=== PATIENT | female | born 1985 | race Caucasian/White ===

== ENCOUNTER → 2016-12-23 | Outpatient (CLI) | payer BC | LOC: LAB 18:29 | PROVIDERS: ATTEND Nurse Practitioner Family | DX: R51 Headache (principal) | CPT/HCPCS: 36415; 85652; 86141 ==

== ENCOUNTER → 2018-04-04 | Outpatient (CLI) | payer BC ==
--- NOTE | 2018-04-04 17:45 | Diagnostic Imaging Report ---
INDICATION: Left wrist pain. AP, oblique, and lateral views of the left wrist are obtained. FINDINGS: No fracture or acute bony abnormality is seen. Joint spaces are unremarkable. IMPRESSION: Negative left wrist. Dictated by: Dictated on workstation # [id number]
== END ==
LOC: RAD 14:16
PROVIDERS: ATTEND Family Medicine
DX: S69.92XA Unspecified injury of left wrist, hand and finger(s), initial encounter (principal); Y93.75 Activity, martial arts
CPT/HCPCS: 73110

== ENCOUNTER 2020-11-03 05:30 | Outpatient (RCR) | payer BC ==
[~2020-11-03] VITALS: Ht 157.5 cm; Wt 90.8 kg
[~2020-11-03 05:30] MED LIST changes: -PANT40TA2 PO
== END 2020-11-03 10:16 | disposition home or self-care (01) ==
LOC: PREOP 05:30
PROVIDERS: ATTEND Surgery
DX: Z01.812 Encounter for preprocedural laboratory examination (principal); Z20.822 Contact with and (suspected) exposure to COVID-19
CPT/HCPCS: 87635

== ENCOUNTER → 2020-11-03 | Outpatient (CLI) | payer BC ==
[~2020-11-03] MED LIST: CYAN250010 PO; DEXT350P5 PO; MULT-974 PO; PANT40TA2 PO
== END ==
LOC: LAB 07:02
PROVIDERS: ATTEND Surgery
DX: Z20.822 Contact with and (suspected) exposure to COVID-19 (principal)

== ENCOUNTER 2020-11-05 11:10 | Day surgery (SDC) | payer BC ==
--- NOTE | 2020-10-30 21:21 | HISTORY AND PHYSICAL ---
DATE OF SERVICE: DATE OF ADMISSION: 11/05/2020. ADMITTING PRIMARY CARE PHYSICIAN: Dr. Barbie Rucker. HISTORY: The patient is a 35-year-old female who has had dysphagia for the past 3 weeks. She also states that during these episodes she does get anxious and then also feels short of breath. She underwent a bimanual examination and there were no palpable masses in the neck. She also underwent an ultrasound, which showed upper limits of normal thyroid gland with no nodules. Upon further questioning, she does not report any classic symptoms of reflux nor any peptic ulcer disease. She does state crampy abdominal pain secondary to gas, which may indicate some level of irritable bowel syndrome. She states her bowel movements are normal. She reports that when she does eat foods, things that are dry in nature including breads and crackers do make her symptoms worse with epigastric pressure sensation, which would reduce on its own over time. PAST MEDICAL HISTORY: None. PAST SURGICAL HISTORY: Right elbow ulnar nerve transposition. ALLERGIES: No known drug allergies. MEDICATIONS: None. SOCIAL HISTORY: Negative smoke, negative alcohol. FAMILY HISTORY: Noncontributory. VITAL SIGNS: Blood pressure 148/90. Current weight 201.7 pounds at 5 feet 2 inches. REVIEW OF SYSTEMS: Well-nourished female in no acute distress. She is experiencing some mild shortness of breath; however, this is likely due to when she does have the episodes of dysphagia. No cough or sputum production as well as no hemoptysis. Intermittent episodes of epigastric and substernal pressure sensation as well as a globus sensation upon swallowing for the past four months on an intermittent basis. No nausea, vomiting. No hematemesis, no coffee ground emesis. No red blood per rectum, no dark tarry stools. No fever, chills, no recent inadvertent weight loss. All other review of systems negative. PHYSICAL EXAMINATION: CHEST: Clear. Good breath sounds bilaterally. HEART: Regular, no murmurs. EXTREMITIES: No lower extremity edema, negative Homans sign. HEENT: No scleral icterus. NECK: No cervical lymphadenopathy. ABDOMEN: Soft, nontender, nondistended. ASSESSMENT AND PLAN: A 35-year-old female with dysphagia. She does not have classic symptoms of gastroesophageal reflux disease; however, due to her symptoms, we will proceed with an EGD as well as biopsies as appropriate and if esophageal strictures identified, we will proceed with a balloon dilatation. Job ID: [id number] DocumentID: [id number] Dictated Date: 10/28/2020 16:46:47 Chief Construction Inspector Date: 10/28/2020 17:15:11 Dictated By: RASHID OLVERA MD
[2020-11-05] VITALS (11 sets, daily range): BP systolic 101–142; BP diastolic 56–101
[~2020-11-05] VITALS: Ht 157.5 cm; Wt 90.8 kg
[2020-11-05] MEDS ORDERED: NS IV 500 ML 500 ML ONE (11:14)
[2020-11-05] MEDS ORDERED: LIDOCAINE JELLY 2% 6 ML SYRINGE ONE (11:43)
[2020-11-05] MEDS ORDERED: MIDAZOLAM 5 MG/5 ML (VERSED) VIAL ONE ×2 (11:43→12:01)
[2020-11-05] MEDS ORDERED: fentaNYL INJ 100 MCG/2 ML AMP ONE (11:43)
--- NOTE | 2020-11-05 11:58 | Conscious Sedation/ASA ---
Conscious Sedation Pre-Proced Time 11:30 ASA Score 2 For ASA 3 and 4: Consider anesthesia and medical clearance. Also, for patients with a history of failed moderate sedation consider anesthesia. Airway Lungs Heart ASA score ASA 1: a normal healthy patient ASA 2: a patient with a mild systemic disease (mid diabetes, controlled hypertension, obesity ASA 3: a patient with a severe systemic disease that limits activity (angina, COPD, prior Myocardial infarction) ASA 4: a patient with an incapacitating disease that is a constant threat to life (CHF, renal failure) ASA 5: a moribund patient not expected to survive 24 hrs. (ruptured aneurysm) ASA 6: a declared brain- patient whose organs are being harvested. For emergent operations, add the letter E after the classification Mallampati Classification Grade 2 Sedation Plan Analgesia, Amnesia, Plan communicated to team members, Discussed options with patient/fam, Discussed risks with patient/fam The patient is an appropriate candidate to undergo the planned procedure, sedation, and anesthesia. The patient immediately re-assessed prior to indication. RASHID OLVERA MD Nov 05, 2020 11:58
--- NOTE | 2020-11-05 11:58 | Progress Note-Pre Operative ---
Pre-Operative Progress Note H&P Reviewed The H&P was reviewed, patient examined and no changes noted. Date Seen by Provider: Nov 05, 2020 Time Seen by Provider: 11: Date H&P Reviewed: Nov 05, 2020 Time H&P Reviewed: 11:30 Pre-Operative Diagnosis: GERD, dysphagia RASHID OLVERA MD Nov 05, 2020 11:58
[2020-11-05] MEDS ORDERED: PANT40TA2 PO (11:59)
[2020-11-05] MEDS ORDERED: morphine INJ 10 MG/ML 1ML (SYR OR VIAL) IVP PRN ×2 (12:00)
[2020-11-05] MEDS ORDERED: HYDROcodone/APAP 5 MG/325 MG (LORTAB) TAB PO PRN (12:00)
[2020-11-05] MEDS ORDERED: ONDANSETRON 4 MG/2 ML (SDV) Z0FRAN IVP PRN (12:00)
[2020-11-05] MEDS ORDERED: ACETAMINOPHEN 325 MG TABLET PO PRN (12:00)
--- NOTE | 2020-11-05 12:00 | Discharge Inst-Surgical ---
D/C Lap Instructions-KIDO New, Converted, or Re-Newed RX: RX on Chart Follow Up Activity as tolerated High Fiber Diet 25g or more per day Avoid Alcohol, Caffeine, Spicy [place] and Acid foods. Drink 64 fluid oz or more of fluids per day. Symptoms to Report: Fever over 101 degree F, Nausea/Vomiting If any problems/questions: Contact your physician or go to Emergency Room RASHID OLVERA MD Nov 05, 2020 12:00
[2020-11-05] MEDS ORDERED: NS IV 500 ML 500 ML IV PRN (12:45)
[2020-11-05] MEDS ORDERED: fentaNYL INJ 100 MCG/2 ML AMP IVP ONE (12:45)
[2020-11-05] MEDS ORDERED: MIDAZOLAM 5 MG/5 ML (VERSED) VIAL IV ONE (12:45)
[2020-11-05] MEDS ORDERED: LIDOCAINE JELLY 2% 6 ML SYRINGE MM PRN (12:45)
[2020-11-05] MEDS ORDERED: HURRICAINE EXT TUBE (BENZOCAINE) XX PRN (12:45)
--- NOTE | 2020-11-05 13:19 | Progress Note-Post Operative ---
Post-Operative Progess Note Surgeon (s)/Bench Assembler (s) Surgeon RASHID OLVERA MD Bench Assembler: none Pre-Operative Diagnosis GERD, dysphagia Post-Operative Diagnosis reflux esophagitis(stage 2), mild distal esoph stricture vs. achalasia, moderate gastritis. Procedure & Operative Findings Date of Procedure 11/05/20 Procedure Performed/Findings EGD with bx and balloon dilatation. Anesthesia Type cs Estimated Blood Loss Estimated blood loss (mL): minimal Specimens/Packing Specimens Removed ge jxn, antrum RASHID OLVERA MD Nov 05, 2020 13:19
--- NOTE | 2020-11-05 20:07 | OPERATIVE REPORT ---
DATE OF SERVICE: 11/05/2020 ATTENDING PRIMARY CARE PHYSICIAN: Barbie Rucker MD PREOPERATIVE DIAGNOSES: Gastroesophageal reflux disease and dysphagia. POSTOPERATIVE DIAGNOSES: Reflux esophagitis stage II, mild distal esophageal stricture, no significant hiatal hernia, moderate gastritis. No distal obstructions. PROCEDURE: EGD with biopsy and balloon dilatation. SURGEON: Rashid Olvera MD ANESTHESIA: Conscious sedation. ESTIMATED BLOOD LOSS: Minimal. FINDINGS: Same as postoperative diagnoses. DISPOSITION: The patient tolerated the procedure well. INDICATIONS: The patient is a 35-year-old female who has had issues with dysphagia for approximately one month. She reports that the symptoms tend to be worse when she does have anxiety and also does feel short of breath at times. She underwent a bimanual examination and there were no palpable masses in the neck. She also underwent an ultrasound of the neck, which did show the thyroid gland at the upper limits of normal; however, no nodules or any significant thyromegaly. Upon further questioning, she does not report any classic symptoms of reflux nor any peptic ulcer disease. She does state occasional crampy abdominal pain secondary to gas. This may indicate some level of irritable bowel syndrome. She does report her bowel movements have been normal. She does state dysphagia, especially foods are dry in nature including breads and crackers. She has epigastric pressure sensation, which reduces on its own over time. DESCRIPTION OF PROCEDURE: The patient was brought to the endoscopy suite, laid in the left lateral decubitus position. After adequate IV pain and sedative medications and conscious sedation anesthesia, the mouthpiece was applied. The endoscope was then placed in the mouth, visualizing the pharynx and hypopharyngeal region. Vocal cords, epiglottis and vallecula identified and appeared to be normal. The endoscope was then advanced to the first, second and third portions of esophagus at the level of the GE junction, reflux esophagitis stage II identified. There was a mild distal esophageal stricture versus hypertonic lower esophageal sphincter. A biopsy was taken of the GE junction with visualization of good hemostasis. The endoscope was then placed in the stomach and endoscope retroflexed visualizing no hiatal hernia. There was a moderate severity gastritis. No formal ulcerations, polyps, or any neoplasms identified. A biopsy was taken of the stomach antrum to rule out H. pylori with visualization of good hemostasis. Endoscope was then advanced to the pylorus and the first and second portion of the duodenum, which appeared normal with no distal obstructions. The endoscope was then slowly withdrawn while taking a second look and suctioning of residual air with no additional findings. The patient tolerated the procedure well. We will start her on Protonix 40 mg daily as well as the necessary lifestyle and diet accommodation including small and more frequent meals, avoidance of eating at night as well as head elevation while lying supine. We will also recommend avoidance of caffeinated beverages, spicy, greasy and acidic foods. If she has recurrent dysphagia, she may have achalasia and we would schedule her for an esophageal manometry study and if confirmed, then proceed with dilatation with a larger achalasia balloon up to 3.5 cm in diameter. Job ID: [id number] DocumentID: [id number] Dictated Date: 11/05/2020 12:29:44 Garment Folder Date: 11/05/2020 20:06:22 Dictated By: RASHID OLVERA MD
== END 2020-11-05 13:30 | disposition home or self-care (01) ==
LOC: ENDO 11:10
PROVIDERS: ATTEND Surgery
DX: K21.00 Gastro-esophageal reflux disease with esophagitis, without bleeding (principal); K22.2 Esophageal obstruction; K29.70 Gastritis, unspecified, without bleeding; Z20.822 Contact with and (suspected) exposure to COVID-19
CPT/HCPCS: 84703; 88305

== ENCOUNTER 2021-02-11 03:20 | Emergency (ER) | payer BC ==
[~2021-02-11] VITALS: Ht 157 cm; Wt 90.7 kg
[~2021-02-11 03:20] MED LIST changes: +PANT40TA2 PO
--- NOTE | 2021-02-11 03:39 | ED Lower Extremity ---
General Stated Complaint: PUNCTURE WOUND, RT FOOT Source: patient History of Present Illness Date Seen by Provider: Feb 11, 2021 Time Seen by Provider: 03:30 Initial Comments PT ARRIVES VIA POV FROM HOME STATES ON FEBRUARY 01, SHE STEPPED ON A PIECE OF GLASS, WITH RIGHT HEEL STATES SHE WAS WEARING "FLIP FLOPS" AND GLASS DID NOT PUNCTURE THE [id number] WAS BETWEEN HER SKIN AND THE FLIP FLOP STATES THEY HAVE BEEN ON VACATION IN [place] SINCE 02/01/21--"WE LEFT RIGHT AFTER [place] MULTIPLE TIMES OVER THE LAST 10 DAYS STATES THEY DROVE HOME 20 HOURS-STARTED 02/10/21 AND JUST GOT HOME AT 0230 AND CAME STRAIGHT HERE C/O PAIN, REDNESS AND SWELLING TO HER HEEL AT THE AREA OF PUNCTURE NO DRAINAGE. NO STREAKS HAS NOT SOUGHT CARE AT ANY TIME UNTIL NOW. SYMPTOMS NO DIFFERENT TONIGHT HAS NOT TAKEN ANYTHING FOR PAIN LAST TETANUS VACCINE IS UNKNOWN PCP: DR. SUDHA TANNER Allergies and Home Medications Allergies Coded Allergies: cat dander (Unverified Allergy, Severe, Anaphylaxis, 11/05/20) Home Medications Cyanocobalamin (Vitamin B-12) 2,500 Mcg Tablet, 2,500 MCG PO DAILY, (Reported) Dextrin 350 Gm Powder, 350 GM PO DAILY, (Reported) Multivitamin 1 Each Tablet, 1 EACH PO DAILY, (Reported) Pantoprazole Sodium 40 Mg Tablet.dr, 40 MG PO DAILY Prescribed by: RASHID OLVERA on 11/05/20 1159 Sulfamethoxazole/Trimethoprim 1 Each Tablet, 1 EACH PO BID Prescribed by: HO SANCHES on 02/11/21 0401 Patient Home Medication List Home Medication List Reviewed: Yes Review of Systems Constitutional: no symptoms reported Musculoskeletal: see HPI Skin: see HPI Psychiatric/Neurological: No Symptoms Reported Past Zaftljv-Vybshs-Ckohpv Hx Immunizations Up To Date Tetanus Booster (TDap): Unknown Seasonal Allergies Seasonal Allergies: No Past Medical History Surgeries: Yes (ELBOW) Orthopedic Respiratory: No Cardiac: No Neurological: No Genitourinary: No Gastrointestinal: No Musculoskeletal: No Endocrine: No HEENT: Yes (CONTACTS) Cancer: No Psychosocial: No Integumentary: No Blood Disorders: No Physical Exam Vital Signs Capillary Refill : Height, Weight, BMI Height: '" Weight: lbs. oz. kg; 36.60 BMI Method: General Appearance: WD/WN, no apparent distress, other (SMILING, TALKS RAPIDLY, NON-STOP) Feet: right foot other (PLANTAR ASPECT OF RIGHT HEEL WITH CENTRAL AREA OF SUB-Q PURULENCE OR BLISTER-LIKE FORMATION, AND MILD SURROUNDING ERYTHEMA, EDEMA AND TENDERNESS. NO FLUCTUANCE, NO DRAINAGE. NO STREAKS. PT AMBULATES IN WITHOUT DIFFICULTY. MOTOR/SENSORY/VASCULAR INTACT) Neurologic/Tendon: normal sensation, normal motor functions, normal tendon functions Neurologic/Psychiatric: no motor/sensory deficits, alert, normal mood/affect Progress/Results/Core Measures Results/Orders My Orders Orders - HO SANCHES DO Foot, Right, 3 View (02/11/21 03:33) Dipht,Pertuss(Acell),Tet Adult (Boostrix (02/11/21 03:45) Sulfamethoxazole/Trimet Ds Tab (Bactrim (02/11/21 04:00) Progress Progress Note : Progress Note AREA OF SUB Q PURULENCE/BLISTER-LIKE FORMATION CLEANSED WITH ALCOHOL, AND PUNCTURED / INCISED WITH #20 G NEEDLE--NO DRAINAGE OR BLEEDING FROM AREA AND NO FOREIGN BODY NOTED--UNABLE TO OBTAIN CULTURES FROM THE AREA Diagnostic Imaging Comments XRAYS RIGHT FOOT--NO ACUTE PROCESS, PENDING RADIOLOGIST REVIEW Reviewed: Reviewed by Me Departure Impression Primary Impression: Infected puncture wound of plantar aspect of foot Additional Impression: Tvhrxewqgd-wuzefwzrl-jucsbbp (DPT) vaccination administered at current visit Disposition: 01 HOME, SELF-CARE Condition: Stable Departure-Patient Inst. Decision time for Depature: 03:54 Referrals: SUDHA TANNER MD (PCP/Family) Primary Care Physician Patient Instructions: Cellulitis (Skin Infection), Adult (DC), Diphtheria and Tetanus Toxoids, and Acellular Pertussis Vaccine, Wound Care (DC) Add. Discharge Instructions: SOAK IN WARM SOAPY WATER OR WARM EPSOM SALTS 2-3 TIMES A DAY TYLENOL AND MOTRIN NEEDED FOR PAIN FOLLOW UP WITH YOUR DR IN 2-3 DAYS FOR FURTHER CARE Scripts Sulfamethoxazole/Trimethoprim (Bactrim Ds Tablet) 1 Each Tablet 1 EACH PO BID, #20 TAB Prov: HO SANCHES DO 02/11/21 HO SANCHES DO Feb 11, 2021 03:39
[2021-02-11] MEDS ORDERED: TETANUS,DIPTH,PERTUSS P/F (BOOSTRIX) 0.5 ML VIAL IM ONE (03:45)
[2021-02-11] MEDS ORDERED: TRIM/SULFAMETH 160/800 (SEPTRA DS) TAB PO ONE (04:00)
[2021-02-11] MEDS ORDERED: SULF1TAB38 PO (04:01)
[2021-02-11 06:58] VITALS: BP 161/102
--- NOTE | 2021-02-11 07:23 | Diagnostic Imaging Report ---
INDICATION: Right foot pain. 3 views. There are no fractures or dislocations. Articulating surfaces are smooth. Joint spaces are well-maintained. IMPRESSION: Negative right foot. Dictated by: Dictated on workstation # [id number]
== END 2021-02-11 04:15 | disposition home or self-care (01) ==
LOC: EDUNIT# 03:20 → ER 03:24
DX: S91.331A Puncture wound without foreign body, right foot, initial encounter (principal); Z23 Encounter for immunization; W25.XXXA Contact with sharp glass, initial encounter
CPT/HCPCS: 73630; 90715